=== PATIENT | female | born 1970 | race Caucasian/White ===

== ENCOUNTER 2019-04-12 09:11 | Emergency (ER) | payer SELFPAY ==
[~2019-04-12] VITALS: Ht 152.4 cm; Wt 70.0 kg
[~2019-04-12 09:11] MED LIST: BEN25 PO; FAMO-96 PO; PRED20TA PO
[2019-04-12 09:13] VITALS: BP 150/99; PULSE 92; RESP 18; Ht 152.4 cm; Wt 70.0 kg
[2019-04-12] MEDS ORDERED: METHYLPREDNISOLONE 125 MG INJ IM ONE (10:00)
[2019-04-12] MEDS ORDERED: DIPHENHYDRAMINE 25 MG CAP PO ONE (10:00)
[2019-04-12] MEDS ORDERED: FAMOTIDINE 20 MG TAB PO ONE (10:00)
== END 2019-04-12 10:07 | disposition home or self-care (01) ==
LOC: FTE 09:11
DX: L50.0 Allergic urticaria (principal)
CPT/HCPCS: 81025; 96372; 99284; J2930